=== PATIENT | male | born 1980 | race Two or more races ===

== ENCOUNTER 2021-08-11 21:09 | Inpatient (IN) | payer OTHER ==
[~2021-08-11] VITALS: Ht 165.1 cm; Wt 96.4 kg
[2021-08-11] MEDS ORDERED: OXYCODONE W/ ACETAMINOPHEN 5/325MG TABLET PO ONE (21:45)
[2021-08-11 22:29] LABS: Basophils # (auto) 0.1 10 ^3/uL (0-0.2); Basophils % (auto) 1.2 % (0.0-2.0); Eosinophils # (auto) 0.4 10 ^3/uL (0-0.8); Eosinophils % (auto) 3.2 % (0.0-7.0); Hematocrit 49.4 % (41.0-53.0); Hemoglobin 16.9 g/dL (13.5-17.5); Lymphocytes % (auto) 45.3 % (10.0-50.0); Mean Corpuscular Hemoglobin 29.6 pg (28.0-32.0); Mean Corpuscular Hgb Conc. 34.3 g/dL (32.0-36.0); Mean Corpuscular Volume 86.5 fL (80.0-100.0); Monocytes # (auto) 1.1 10 ^3/uL (0-1.3); Monocytes % (auto) 9.8 % (0.0-12.0); Neutrophils # (auto) 4.5 10 ^3/uL (1.6-8.6); Neutrophils % (auto) 40.5 % (37.0-80.0); Nucleated Red Blood Cells % 0.1 %; Red Blood Cells 5.71 10^6/uL (4.5-5.90); Red Cell Distribution Width 13.8 % (11.8-14.3)
[2021-08-11 23:08] LABS: Calcium 9.3 mg/dL (8.5-10.1); Potassium 4.6 mmol/L (3.5-5.1)
[2021-08-11 23:12] LABS: BUN/Creatinine Ratio 11.5; Bilirubin, Total 0.4 mg/dL (0.2-1.0); CRP High Sensitivity 0.17 mg/dL (< 0.3); Total Protein 8.5 g/dL (6.4-8.2)
[2021-08-12] VITALS (8 sets, daily range): BP systolic 119–164; BP diastolic 53–96
[2021-08-12] MEDS ORDERED: SODIUM CHLORIDE 0.9% 1,000 ML IV ONE (00:30)
[2021-08-12] MEDS ORDERED: HYDROmorphone HCL 2 MG/ML VL/or syr IV ONE (00:30)
[2021-08-12] MEDS ORDERED: ONDANSETRON HCL 4 MG/2 ML VIAL IV ONE ×2 (00:30→02:00)
[2021-08-12] MEDS ORDERED: MORPHINE SULFATE INJ 2 MG/ml SYRG IV PRN (01:00)
[2021-08-12] MEDS ORDERED: NITROGLYCERIN 0.4 MG SL TAB SL PRN (01:00)
[2021-08-12] MEDS: MORPHINE SULFATE INJ 2 MG/ml SYRG IV PRN ×4 (06:38→22:33)
[2021-08-12 08:59] LABS: Basophils # (auto) 0 10 ^3/uL (0-0.2); Basophils % (auto) 0.7 % (0.0-2.0); Eosinophils # (auto) 0.2 10 ^3/uL (0-0.8); Eosinophils % (auto) 2.1 % (0.0-7.0); Hematocrit 43.6 % (41.0-53.0); Hemoglobin 14.8 g/dL (13.5-17.5); Lymphocytes # (auto) 2.2 10 ^3/uL (0.4-5.4); Lymphocytes % (auto) 31.4 % (10.0-50.0); Mean Corpuscular Hemoglobin 29.4 pg (28.0-32.0); Mean Corpuscular Hgb Conc. 33.9 g/dL (32.0-36.0); Mean Corpuscular Volume 86.8 fL (80.0-100.0); Monocytes # (auto) 0.7 10 ^3/uL (0-1.3); Monocytes % (auto) 10.2 % (0.0-12.0); Neutrophils % (auto) 55.6 % (37.0-80.0); Nucleated Red Blood Cells % 0.1 %; Red Blood Cells 5.02 10^6/uL (4.5-5.90); Red Cell Distribution Width 13.3 % (11.8-14.3); White Blood Cell 7.1 10^3/uL (4.4-10.8)
[2021-08-12 09:11] LABS: INR 1.08 (0.9-1.15); Partial Thromboplastin Time 25.8 sec (23.6-33.0)
[2021-08-12 09:14] LABS: Albumin 3.4 g/dL (3.4-5.0); Calcium 8.6 mg/dL (8.5-10.1); Potassium 4.1 mmol/L (3.5-5.1)
[2021-08-12 09:17] LABS: BUN/Creatinine Ratio 12.1; Bilirubin, Total 0.4 mg/dL (0.2-1.0); Total Protein 7.2 g/dL (6.4-8.2)
[2021-08-12] MEDS ORDERED: NAPROXEN 500 MG TAB PO SCH (10:00)
[2021-08-12] MEDS: ENOXAPARIN SOD 40 MG/0.4 ML SYRINGE SC SCH (10:35)
[2021-08-12] MEDS: ALBUTEROL SULF 2.5 MG/0.5ML(0.5%) NEB SOLN NEB PRN (22:30)
[2021-08-12] MEDS: NAPROXEN 500 MG TAB PO SCH (22:33)
[2021-08-13 05:00] VITALS: BP 142/87
[2021-08-13] MEDS: MORPHINE SULFATE INJ 2 MG/ml SYRG IV PRN ×7 (07:09→21:39)
[2021-08-13 09:00] VITALS: BP 123/88
[2021-08-13] MEDS: NAPROXEN 500 MG TAB PO SCH ×2 (10:23→23:03)
[2021-08-13] MEDS: ENOXAPARIN SOD 40 MG/0.4 ML SYRINGE SC SCH (11:17)
[2021-08-13 13:25] VITALS: BP 164/89
[2021-08-13 17:22] VITALS: BP 141/97
[2021-08-13] MEDS: ALBUTEROL SULF 2.5 MG/0.5ML(0.5%) NEB SOLN NEB PRN (18:44)
[2021-08-13 22:00] VITALS: BP 135/77
[2021-08-14] MEDS: MORPHINE SULFATE INJ 2 MG/ml SYRG IV PRN ×4 (04:22→19:58)
[2021-08-14 04:38] LABS: Urine Amorphous Crystal FEW /hpf (None Seen); Urine Bacteria NONE SEEN /hpf (None Seen); Urine Blood Negative /uL (Negative); Urine Specific Gravity 1.016 (1.001-1.035); Urine WBC <1 /hpf (0 - 3)
[2021-08-14 05:00] VITALS: BP 126/79
[2021-08-14 09:00] VITALS: BP 118/77
[2021-08-14] MEDS: ENOXAPARIN SOD 40 MG/0.4 ML SYRINGE SC SCH (10:41)
[2021-08-14] MEDS: amLODIPine BESYLATE 5 MG TAB PO SCH (10:41)
[2021-08-14] MEDS: NAPROXEN 500 MG TAB PO SCH ×2 (10:42→22:17)
[2021-08-14 13:00] VITALS: BP 134/88
[2021-08-14 17:00] VITALS: BP 126/87
[2021-08-14 23:40] VITALS: BP 139/95
[2021-08-15] VITALS (12 sets, daily range): BP systolic 105–136; BP diastolic 58–80
[2021-08-15] MEDS: MORPHINE SULFATE INJ 2 MG/ml SYRG IV PRN (08:59)
[2021-08-15] MEDS ORDERED: CLINDAMYCIN 600MG IV 50 ML IV ONE (09:21)
[2021-08-15] MEDS: NAPROXEN 500 MG TAB PO SCH ×2 (09:41→22:14)
[2021-08-15] MEDS: amLODIPine BESYLATE 5 MG TAB PO SCH (09:42)
[2021-08-15] MEDS ORDERED: TETRACAINE 1% INJ 2 ML VIAL IJ ONE (10:37)
[2021-08-15] MEDS ORDERED: EPINEPHrine HCL 1 MG/1 ML AMP ONE (10:39)
[2021-08-15] MEDS ORDERED: TRANEXAMIC ACID 20 ML ONE (10:50)
[2021-08-15] MEDS ORDERED: VANCOMYCIN HCL 1000 MG VL ONE (11:00)
[2021-08-15] MEDS ORDERED: fentaNYL CITRATE 100 MCG/2 ML VL ONE (11:43)
[2021-08-15] MEDS ORDERED: MORPHINE SULF PF 5 MG/10 ML VIAL ONE (11:43)
[2021-08-15] MEDS ORDERED: MIDAZOLAM HCL 2MG/2ML 2ml VIAL (1mg/ml) ONE ×2 (11:44→12:01)
[2021-08-15] MEDS ORDERED: PROPOFOL 10 MG/ML 20 ML IV ONE (12:01)
[2021-08-15] MEDS ORDERED: DexAMETHasone SOD PHOS 10MG/1ML VIAL INJ ONE (12:01)
[2021-08-15] MEDS ORDERED: HYDROmorphone HCL 2 MG/ML VL/or syr IV PRN (12:15)
[2021-08-15] MEDS ORDERED: NALBUPHINE HCL 10 MG/1ml INJECTION SUBCUT ONE (12:15)
[2021-08-15] MEDS ORDERED: LABETALOL HCL 5 MG/ML 4ML SYRINGE IV PRN (12:15)
[2021-08-15] MEDS ORDERED: ePHEDrine SULFATE 50 MG/ML AMP IV PRN (12:15)
[2021-08-15] MEDS ORDERED: NALOXONE HCL 0.4 MG/ML VIAL IV PRN (12:15)
[2021-08-15] MEDS ORDERED: DexAMETHasone SOD PHOS 10MG/1ML VIAL INJ IV PRN (12:15)
[2021-08-15] MEDS ORDERED: diphenhdrAMINE HCL 50 MG/1 ML VL IV PRN (12:15)
[2021-08-15] MEDS ORDERED: ONDANSETRON HCL 4 MG/2 ML VIAL IV PRN (12:15)
[2021-08-15] MEDS ORDERED: MIDAZOLAM HCL 2MG/2ML 2ml VIAL (1mg/ml) IV PRN (12:15)
[2021-08-15] MEDS ORDERED: ceFAZolin 2 GM in D5W 5% 100 ML IV SCH (14:00)
[2021-08-15] MEDS: HYDROmorphone HCL 2 MG/ML VL/or syr IV PRN (14:33)
[2021-08-15] MEDS: ALBUTEROL SULF 2.5 MG/0.5ML(0.5%) NEB SOLN NEB PRN (16:39)
[2021-08-15] MEDS: ONDANSETRON HCL 4 MG/2 ML VIAL IV PRN (18:08)
[2021-08-15] MEDS: SODIUM CHLORIDE 0.9% 1,000 ML IV SCH ×2 (18:21→19:30)
[2021-08-16] VITALS (18 sets, daily range): BP systolic 106–145; BP diastolic 56–90
[2021-08-16] MEDS: oxyCODONE HCL 5MG TAB PO PRN ×5 (02:53→20:02)
[2021-08-16] MEDS: HYDROmorphone HCL 2 MG/ML VL/or syr IV PRN ×4 (03:01→21:05)
[2021-08-16] MEDS: SODIUM CHLORIDE 0.9% 1,000 ML IV SCH ×3 (03:31→19:30)
[2021-08-16 05:18] LABS: Basophils # (auto) 0 10 ^3/uL (0-0.2); Basophils % (auto) 0.3 % (0.0-2.0); Eosinophils # (auto) 0 10 ^3/uL (0-0.8); Eosinophils % (auto) 0.1 % (0.0-7.0); Hematocrit 38.8 % (41.0-53.0); Hemoglobin 13.5 g/dL (13.5-17.5); Lymphocytes # (auto) 2.3 10 ^3/uL (0.4-5.4); Mean Corpuscular Hgb Conc. 34.7 g/dL (32.0-36.0); Mean Corpuscular Volume 86.2 fL (80.0-100.0); Monocytes # (auto) 1.5 10 ^3/uL (0-1.3); Monocytes % (auto) 12.6 % (0.0-12.0); Neutrophils # (auto) 8.2 10 ^3/uL (1.6-8.6); Red Cell Distribution Width 13.6 % (11.8-14.3); White Blood Cell 12.1 10^3/uL (4.4-10.8)
[2021-08-16 05:37] LABS: BUN/Creatinine Ratio 17.1; Calcium 8.4 mg/dL (8.5-10.1); Potassium 4.5 mmol/L (3.5-5.1)
[2021-08-16] MEDS ORDERED: ceFAZolin 2 GM in D5W 5% 100 ML IV SCH (06:00)
[2021-08-16] MEDS: APIXABAN 2.5 MG TAB PO SCH ×2 (09:27→21:06)
[2021-08-16] MEDS: NAPROXEN 500 MG TAB PO SCH ×2 (09:28→21:05)
[2021-08-16] MEDS: amLODIPine BESYLATE 5 MG TAB PO SCH (09:31)
[2021-08-16] MEDS: ALBUTEROL SULF 2.5 MG/0.5ML(0.5%) NEB SOLN NEB PRN (15:21)
[2021-08-17] MEDS: SODIUM CHLORIDE 0.9% 1,000 ML IV SCH ×3 (03:30→19:30)
[2021-08-17] MEDS: ACETAMINOPHEN 325 MG TAB PO PRN ×2 (04:25→18:07)
[2021-08-17] MEDS: HYDROmorphone HCL 2 MG/ML VL/or syr IV PRN ×3 (04:44→16:34)
[2021-08-17 04:48] VITALS: BP 127/78
[2021-08-17] MEDS: APIXABAN 2.5 MG TAB PO SCH ×2 (09:03→22:34)
[2021-08-17] MEDS: NAPROXEN 500 MG TAB PO SCH ×2 (09:04→22:35)
[2021-08-17] MEDS: amLODIPine BESYLATE 5 MG TAB PO SCH (09:04)
[2021-08-17] MEDS: ONDANSETRON HCL 4 MG/2 ML VIAL IV PRN (09:05)
[2021-08-17 13:00] VITALS: BP 139/97
[2021-08-17] MEDS: oxyCODONE HCL 5MG TAB PO PRN ×2 (14:01→23:35)
[2021-08-17 16:32] VITALS: BP 132/88
[2021-08-17] MEDS: ALBUTEROL SULF 2.5 MG/0.5ML(0.5%) NEB SOLN NEB PRN (19:52)
[2021-08-17 22:07] VITALS: BP 135/91
[2021-08-18] MEDS: ACETAMINOPHEN 325 MG TAB PO PRN
[2021-08-18] MEDS ORDERED: HYDROmorphone HCL 2 MG/ML VL/or syr IV PRN (01:30)
[2021-08-18 05:25] VITALS: BP 110/75
[2021-08-18] MEDS: SODIUM CHLORIDE 0.9% 1,000 ML IV SCH ×2 (05:53→11:47)
[2021-08-18 09:00] VITALS: BP 123/74
[2021-08-18] MEDS: APIXABAN 2.5 MG TAB PO SCH (09:38)
[2021-08-18] MEDS: NAPROXEN 500 MG TAB PO SCH (09:38)
[2021-08-18] MEDS: amLODIPine BESYLATE 5 MG TAB PO SCH (09:39)
[2021-08-18 12:53] VITALS: BP 117/70
[2021-08-18 15:00] VITALS: BP 123/74
[2021-08-18] MEDS: oxyCODONE HCL 5MG TAB PO PRN (16:07)
== END 2021-08-18 17:58 | DRG 470 ==
LOC: EEVIPCON 21:09 → ER 21:09 → OVERFLOW 08-12 00:50 → WEST WING 08-12 06:34 → TELE-WESTW 08-15 19:59 → WEST WING 08-16 18:17
PROVIDERS: ADMIT Internal Medicine; ATTEND Internal Medicine
PROC: 0SRB06Z Replacement of Left Hip Joint with Oxidized Zirconium on Polyethylene Synthetic Substitute, Open Approach (ICD-10-PCS; principal; 2021-08-15 11:48)
DX: M87.852 Other osteonecrosis, left femur (principal); M87.851 Other osteonecrosis, right femur; M24.852 Other specific joint derangements of left hip, not elsewhere classified; M24.851 Other specific joint derangements of right hip, not elsewhere classified; Z20.822 Contact with and (suspected) exposure to COVID-19; J45.20 Mild intermittent asthma, uncomplicated; Z88.0 Allergy status to penicillin; Z83.3 Family history of diabetes mellitus
CPT/HCPCS: 36415; 71045; 72170; 73501; 73721; 74176; 80048; 80053; 81001; 84484; 85025; 85610; 85652; 85730; 86141; 86850; 86900; 86901; 87081; 94640; 96361; 96374; 96375; 97110; 97116; 97163; 97530; G0378; J0171; J0690; J1100; J2250; J2405; J2704; J3490; J7060